=== PATIENT | female | born 2000 | race Caucasian/White ===

== ENCOUNTER 2020-07-17 12:48 | Emergency (ER) | payer OTHER, SELFPAY ==
[2020-07-17 13:02] VITALS: BP 143/82; PULSE 99; RESP 18; TEMP 37.1; O2SAT 100
--- NOTE | 2020-07-17 13:06 | ED.URI ---
HPI - URI/Sore Throat General Chief Complaint: Upper Respiratory Infection Stated Complaint: Ear Pain,sore throat Time Seen by Provider: 07/17/20 13:06 Source: patient Mode of arrival: ambulatory Limitations: no limitations History of Present Illness HPI Narrative: Carol Melgoza is a 20 yo female with no PMH who comes to express care with complaints of sore throat and bilateral ear pain that started on Saturday. She states she had bronchitis back in October and it feels similar to that although she is not coughing. She sounds mildly congested has difficulty swallowing, states throat hurts the most when she tries to swallow liquids Related Data Allergies Allergy/AdvReac Type Severity Reaction Status Date / Time No Known Allergies Allergy Mild Verified 07/17/20 12:52 Review of Systems Review of Systems: Narrative: CONSTITUTIONAL: Denies fever, chills, sweats. EYES: Denies visual changes, redness, discharge. ENT: Denies rhinorrhea, congestion, has sore throat, has bilateral otalgia. CARDIOVASCULAR: Denies chest pain, palpitations, edema. RESPIRATORY: Denies dyspnea, wheezing, cough GASTROINTESTINAL: Denies abdominal pain, nausea, vomiting, diarrhea. GENITOURINARY: Denies dysuria, hematuria, abnormal discharge SKIN: Denies rash or itching. NEUROLOGIC: Denies numbness, or focal weakness. PSYCHIATRIC: Denies anxiety or depression. PMFSH Past Medical History Medical History No active medical problems Family History Family History Other No acute medical problems Social History Social History Smoking status: Never smoker Alcohol intake: never Gender identity (if verbalized by the patient): Female Comments At time of signature, I agree with nursing past medical, surgical, social and family history. There is no relevant family history pertinent to the presenting complaint. Exam Narrative: Exam Narrative: GENERAL: This is a well-nourished, well-developed patient, in mild distress. HEAD: normocephalic, atraumatic. EYES: Sclera clear/white. Vision is grossly intact. EARS: External ears normal. Hearing grossly intact. Bilateral ear canals clear no erythema, TMs intact NOSE: External nose normal without nasal discharge, nares without redness, no rhinorrhea. THROAT: Mucous membranes moist, posterior pharynx mild erythema -difficulty swallowing on exam NECK: Neck supple, non-tender CARDIOVASCULAR: Regular rate and rhythm without murmurs, gallops, or rubs. RESPIRATORY: Clear to auscultation. Breath sounds equal bilaterally. No wheezes, rales, or rhonchi. GASTROINTESTINAL: Abdomen soft, non-tender, SKIN: warm, intact with no suspicious lesions or rash, good texture and turgor. NEURO: awake, alert, and oriented to person, place and time. There were no obvious focal neurologic abnormalities. Steady gait EXTREMITIES: Normal range of motion. BACK: Nontender without deformity Course Course Emergency Course: Patient came to express care with congestion and sore throat with fatigue flu and strep test done which were negative COVID ordered Started on prednisone albuterol inhaler, cepacol Follow-up with primary care Vital Signs Vital signs: Vital Signs Temperature 98.7 F 07/17/20 13:02 Pulse Rate 99 07/17/20 13:02 Respiratory Rate 18 07/17/20 13:02 Blood Pressure 143/82 H 07/17/20 13:02 Pulse Oximetry 100 07/17/20 13:02 Temperature 98.7 F 07/17/20 13:02 Pulse Rate 99 07/17/20 13:02 Respiratory Rate 18 07/17/20 13:02 Blood Pressure 143/82 H 07/17/20 13:02 Pulse Oximetry 100 07/17/20 13:02 MDM - URI/Sore Throat Differential Diagnosis Differential diagnosis: Likely upper respiratory infection, otitis media, bronchitis, pharyngitis and other Lab Data Labs: Influenza A Screen Negative Ref
== END 2020-07-17 13:40 | disposition home or self-care (01) ==
PROVIDERS: Emergency Provider Nurse Practitioner; PCP Family Medicine
DX: J02.8 Acute pharyngitis due to other specified organisms (principal); H92.03 Otalgia, bilateral; Z20.828 Contact with and (suspected) exposure to other viral communicable diseases
CPT/HCPCS: 87081; 87804; 87880; 99213; G0463

== ENCOUNTER 2021-08-22 13:42 | Emergency (ER) | payer OTHER, SELFPAY ==
[2021-08-22 13:56] VITALS: BP 124/70; PULSE 79; RESP 16; TEMP 36.7; O2SAT 100
--- NOTE | 2021-08-22 14:35 | ED.SKABFB ---
HPI - Skin/Abscess/Foreign Bdy General Chief complaint: Skin/Abscess/Foreign Body Stated complaint: Rash History of Present Illness HPI narrative: This is a 21-year-old female presents to the urgent care complains of having a rash for the past week started on her inner thighs. Patient states has been taking some Benadryl has continued to progress is on her bilateral arms on her buttocks this is on her stomach currently on her chest wall. Related Data Allergies Allergy/AdvReac Type Severity Reaction Status Date / Time No Known Allergies Allergy Mild Verified 08/22/21 14:01 Review of Systems Review of Systems: Rash arms buttocks, legs, All systems reviewed & are unremarkable except as noted in HPI and below PMFSH Past Medical History Medical History (Updated 08/23/21 @ 17:28 by Diana Rivero NP) No active medical problems Family History Family History Other No acute medical problems Social History Social History Smoking status: Never smoker Alcohol intake: never Gender identity (if verbalized by the patient): Female Comments At time as signature, I have reviewed and agree with nursing past medical, social, surgical and family history. Please see nursing chart for further information. There is no relevant family history pertinent to the presenting complaint. Exam Narrative: GENERAL:Well-appearing, well-nourished, and in no acute distress. HEAD:Normocephalic, atraumatic. EYES: PERRLA and EOMI. ENT: Nares clear, no rhinorrhea or epistaxis. Mucous membranes moist. HEART: Regular rate and rhythm. ABDOMEN: Soft, nontender, nondistended, normal active bowel sounds. EXTREMITIES: Normal range of motion. No edema. SKIN: Warm, dry, n fine erythema urticaria rash abdomen, inner thighs, legs, chest wall. NEURO: No focal deficits. Alert and oriented x3. Course Vital Signs Vital signs: Vital Signs Temperature 98.1 F 08/22/21 13:56 Pulse Rate 79 08/22/21 13:56 Respiratory Rate 16 08/22/21 13:56 Blood Pressure 124/70 08/22/21 13:56 Pulse Oximetry 100 08/22/21 13:56 Temperature 98.1 F 08/22/21 13:56 Pulse Rate 79 08/22/21 13:56 Respiratory Rate 16 08/22/21 13:56 Blood Pressure 124/70 08/22/21 13:56 Pulse Oximetry 100 08/22/21 13:56 MDM - Skin/Abscess/Foreign Bdy Differential Diagnosis Differential diagnosis: Likely abscess of skin or subcutaneous tissue, urticaria, allergic reaction to drug, eczema, impetigo and contact dermatitis Discharge Plan Discharge Clinical Impression: Urticaria, Contact dermatitis Patient Disposition: Home, Self-Care Condition: Stable Instructions: Antibiotic Form, Contact Dermatitis (ED), Acute Rash (ED) Additional Instructions: Use skin creams/lotion, such as those containing calamine or pramoxine to reduce itchiness Avoid scratching when possible to prevent worsening of the condition and disruption of the skin that could lead to bacterial infection To relieve itching, place a cool washcloth or some ice over the area that itches, rather than scratching Return to the office or seek ER visit if condition is not improving or worsens with fever, swelling, difficulty breathing or swallowing. Prescriptions: New methylprednisolone [Medrol (Pierce)] 4 mg tablets,dose pack See Rx Instructions .ROUTE .COMPLEX Qty: 21 RF: 0 hydrocortisone [Cortisone (hydrocortisone)] 1 % cream 1 applic topical TID PRN (Reason: allergic reaction) Qty: 28.4 RF: 0 cetirizine [Zyrtec] 10 mg tablet 10 mg PO DAILY PRN (Reason: allergy symptoms) Qty: 30 RF: 0 Follow-up/Referrals: Aguilar,Amy Rothman MD [Primary Care Provider] - Stand Alone Forms: Work/School Release IP Time of Disposition: 14:41
== END 2021-08-22 14:50 | disposition home or self-care (01) ==
PROVIDERS: Emergency Provider Nurse Practitioner Family; PCP Family Medicine
DX: L50.9 Urticaria, unspecified (principal); L25.9 Unspecified contact dermatitis, unspecified cause
CPT/HCPCS: 99213; G0463

== ENCOUNTER 2022-03-14 17:28 | Outpatient (CLI) | payer OTHER, SELFPAY ==
[2022-03-14 17:57] LABS: Hematocrit 22.4 % (37.0-47.0); Mean Corpuscular HGB Conc 26.8 g/dl (32-36); Mean Corpuscular Hemoglobin 15.6 pg (26-34); Mean Corpuscular Volume 58.3 fl (80-100); Mean Platelet Volume 9.8 fl (7.4-10.4); Platelet Count Result 293 k/mm3 (150-375); Red Blood Count 3.84 M/mm3 (4.2-5.4); Red Cell Distribution Width 19.9 % (11.5-14.5); White Blood Count 8.8 K/mm3 (4.5-10.0)
[2022-03-14 18:12] LABS: Alanine Aminotransferase 12 U/L (6-35); Albumin Level 4.3 g/dL (3.5-5.1); Alkaline Phosphatase 54 U/L (38-126); Anion Gap 8 mmol/L (8-16); Aspartate Amino Transferase 23 U/L (14-36); Blood Urea Nitrogen 13 mg/dL (7-17); Calcium 8.3 mg/dL (8.4-10.2); Carbon Dioxide 23 mmol/L (22-30); Chloride 106 mmol/L (98-107); Cholesterol 86 mg/dL (0-200); Estimated Glomerular Filt Rate > 60; Glucose 93 mg/dL (65-110); HDL Direct 20 mg/dL; Potassium 3.9 mmol/L (3.4-5.0); Sodium 137 mmol/L (137-145); Triglycerides 290 mg/dL (<150)
[2022-03-14 18:46] LABS: Appearance Urine Clear (Clear); Bilirubin Urine Negative (Negative); Blood Urine Negative (Negative); Color Urine Yellow (Yellow); Glucose Urine UA Negative (Negative); Ketones Urine Negative (Negative); Leukocyte Esterase Ur Negative LEU/UL (NEGATIVE); Nitrate Urine Negative (Negative); Protein Urine Trace mg/dL (Negative); Specific Grav Ur >= 1.030 (1.001-1.035); Urobilinogen Urine 0.2 mg/dL (<2.0); pH Urine 5.5 (5.0-9.0)
[2022-03-14 19:16] LABS: Bacteria Urine Trace /hpf; Mucus Urine Rare /lpf; RBC Urine 0-2 /hpf (0-2); Squamous Epithelial Cell Urine Few /hpf (Few); WBC Urine 0-3 /hpf (0-3)
[2022-03-14 19:24] LABS: Add Urine Microscopic? YES
[2022-03-14 19:29] LABS: LDL Cholesterol Direct < 30 mg/dL
== END 2022-03-14 17:29 | disposition home or self-care (01) ==
LOC: ANHLAB 17:31
PROVIDERS: PCP Family Medicine; Visit Provider Nurse Practitioner Family
DX: Z13.29 Encounter for screening for other suspected endocrine disorder (principal); Z13.89 Encounter for screening for other disorder; E28.2 Polycystic ovarian syndrome; E66.9 Obesity, unspecified
CPT/HCPCS: 36415; 80053; 80061; 81001; 83036; 84443; 85027; 85055

== ENCOUNTER 2022-03-23 11:49 | Outpatient (CLI) | payer OTHER, SELFPAY ==
[2022-03-23 12:22] LABS: INR 1.2; Prothrombin Time 14.4 Seconds (11.1-14.7)
== END 2022-03-23 11:50 | disposition home or self-care (01) ==
LOC: ANHLAB 11:53
PROVIDERS: PCP Family Medicine; Visit Provider Nurse Practitioner Family
DX: R53.83 Other fatigue (principal); D50.9 Iron deficiency anemia, unspecified
CPT/HCPCS: 36415; 85610

== ENCOUNTER 2022-03-30 17:01 | Outpatient (CLI) | payer OTHER, SELFPAY ==
[2022-03-30 17:57] LABS: Hematocrit 26.6 % (37.0-47.0); Immature Platelet Fraction Pct 4.7 % (0.9-11.2); Mean Corpuscular HGB Conc 25.9 g/dl (32-36); Mean Corpuscular Hemoglobin 16.3 pg (26-34); Mean Corpuscular Volume 62.9 fl (80-100); Mean Platelet Volume 9.8 fl (7.4-10.4); Platelet Count Result 386 k/mm3 (150-375); Red Blood Count 4.23 M/mm3 (4.2-5.4); Red Cell Distribution Width 24.2 % (11.5-14.5); White Blood Count 6.8 K/mm3 (4.5-10.0)
[2022-03-30 17:58] LABS: Add Urine Microscopic? YES; Appearance Urine Slightly Cloudy (Clear); Bilirubin Urine 1+ (Negative); Blood Urine 3+ (Negative); Color Urine Yellow (Yellow); Glucose Urine UA Negative (Negative); Ketones Urine Negative (Negative); Leukocyte Esterase Ur Negative LEU/UL (NEGATIVE); Nitrate Urine Negative (Negative); Protein Urine 1+ mg/dL (Negative); Specific Grav Ur >= 1.030 (1.001-1.035); Urobilinogen Urine 0.2 mg/dL (<2.0); pH Urine 5.5 (5.0-9.0)
[2022-03-30 18:10] LABS: Alanine Aminotransferase 9 U/L (6-35); Albumin Level 4.2 g/dL (3.5-5.1); Alkaline Phosphatase 52 U/L (38-126); Anion Gap 9 mmol/L (8-16); Aspartate Amino Transferase 18 U/L (14-36); Bilirubin,Total 0.9 mg/dL (0.2-1.3); Blood Urea Nitrogen 14 mg/dL (7-17); Calcium 8.4 mg/dL (8.4-10.2); Carbon Dioxide 23 mmol/L (22-30); Chloride 107 mmol/L (98-107); Cholesterol 94 mg/dL (0-200); Estimated Glomerular Filt Rate > 60; Glucose 89 mg/dL (65-110); HDL Direct 18 mg/dL; Potassium 4.1 mmol/L (3.4-5.0); Sodium 139 mmol/L (137-145); Triglycerides 284 mg/dL (<150)
[2022-03-30 18:11] LABS: Hemoglobin A1C 4.9 % (<5.7)
[2022-03-30 18:19] LABS: Mucus Urine Moderate /lpf; RBC Urine >75 /hpf (0-2); Squamous Epithelial Cell Urine Few /hpf (Few)
[2022-03-30 18:22] LABS: Hemoglobin 6.9 g/dL (12.0-15.0); LDL Cholesterol Direct 35 mg/dL
[2022-03-30 18:36] LABS: Free T4 Free Thyroxine 1.23 ng/mL (0.78-2.19); Vitamin D 25 Hydroxy 45.2 ng/mL
[2022-03-30 18:37] LABS: Total Triiodothyronine (T3) 1.58 NG/ML (0.97-1.69)
== END 2022-03-30 17:02 | disposition home or self-care (01) ==
LOC: ANHLAB 17:04
PROVIDERS: PCP Family Medicine; Visit Provider Nurse Practitioner Family
DX: Z13.29 Encounter for screening for other suspected endocrine disorder (principal); Z13.89 Encounter for screening for other disorder; Z13.220 Encounter for screening for lipoid disorders; Z13.1 Encounter for screening for diabetes mellitus; E28.2 Polycystic ovarian syndrome; E66.9 Obesity, unspecified
CPT/HCPCS: 36415; 80053; 80061; 81001; 82306; 82607; 83036; 84439; 84443; 84480; 85027; 85055

== ENCOUNTER 2023-01-31 15:17 | Emergency (ER) | payer OTHER, SELFPAY ==
--- NOTE | ~2023-01-31 | XR_ITS ---
XR chest 2V DATE: 01/31/2023 15:45 INDICATION: Chest pain starting today TECHNIQUE: PA and lateral views COMPARISON: None FINDINGS: Normal heart size. No hilar or mediastinal enlargement. No pulmonary infiltrate or consolid ation, pleural effusion or pulmonary vascular congestion or pneumothorax. Included skeletal structure s are unremarkable other than mild thoracolumbar dextroscoliosis. IMPRESSION: No active cardiopulmonary disease Reviewed, dictated and finalized at location L.
--- NOTE | 2023-01-31 15:18 | ECG_ITS ---
Measurements Intervals [place] Rate: 98 P: 9 OH: 104 QRS: -18 QRSD: 89 T: -1 QT: 345 QTc: 442 Interpretive Statements SINUS RHYTHM WITH SHORT OH INTERVAL POSSIBLE LEFT ATRIAL ENLARGEMENT [-0.1mV P WAVE IN V1/V2] POSSIBLE LEFT VENTRICULAR HYPERTROPHY [VOLTAGE CRITERIA PLUS LAE OR QRS WIDENING] NO PREVIOUS ECG AVAILABLE FOR COMPARISON Electronically Signed On 01-31-2023 18:37:34 CDT by Anu Garay M.D.
[2023-01-31 15:22] VITALS: BP 142/87; PULSE 98; RESP 16; O2SAT 100
[2023-01-31 15:45] LABS: Basophils Percent Auto 0.6 % (0.2-1.2); Eosinophils Absolute Auto 0.1 K/mm3 (0-0.3); Eosinophils Percent Auto 1.9 % (0-4.4); Hematocrit 30.5 % (37.0-47.0); Hemoglobin 8.9 g/dL (12.0-15.0); Immature Granulocyte Absolute 0.02 K/mm3 (0.00-0.031); Immature Granulocyte Percent A 0.3 % (0-0.5); Lymphocytes Absolute Auto 1.45 K/mm3 (0.9-3.2); Lymphocytes Percent Auto 23.1 % (18.3-44.2); Mean Corpuscular HGB Conc 29.2 g/dl (32-36); Mean Corpuscular Hemoglobin 18.1 pg (26-34); Mean Platelet Volume 9.7 fl (7.4-10.4); Monocytes Absolute Auto 0.7 K/mm3 (0.1-0.6); Monocytes Percent Auto 11.6 % (2.6-8.5); Neutrophils Absolute Auto 3.9 K/mm3 (1.3-6.7); Neutrophils Percent Auto 62.5 % (45.5-73.1); Platelet Count Result 422 k/mm3 (150-375); Red Blood Count 4.92 M/mm3 (4.2-5.4); Red Cell Distribution Width 17.1 % (11.5-14.5); White Blood Count 6.3 K/mm3 (4.5-10.0)
[2023-01-31 15:54] LABS: Alanine Aminotransferase 37 U/L (6-35); Albumin Level 4.5 g/dL (3.5-5.1); Alkaline Phosphatase 58 U/L (38-126); Anion Gap 7 mmol/L (8-16); Aspartate Amino Transferase 40 U/L (14-36); Bilirubin,Total 1.2 mg/dL (0.2-1.3); Blood Urea Nitrogen 10 mg/dL (7-17); Calcium 8.9 mg/dL (8.4-10.2); Carbon Dioxide 29 mmol/L (22-30); Chloride 103 mmol/L (98-107); Estimated CRCL calculation 108 ml/min; Estimated Glomerular Filt Rate > 60; Glucose 109 mg/dL (65-110); Lipase 68 U/L (23-300); Potassium 3.9 mmol/L (3.4-5.0); Sodium 139 mmol/L (137-145)
[2023-01-31 15:58] LABS: INR 1.1; Prothrombin Time 14.2 Seconds (11.1-14.7)
[2023-01-31 15:59] LABS: Partial Thromboplastin Time 28.5 SECONDS (22.3-36.8)
[2023-01-31 16:06] LABS: Troponin I < 0.012 ng/mL (0.000-0.034)
[2023-01-31 16:11] LABS: Anisocytosis 1+ (NORMAL); Hypochromasia 2+ (NORMAL); Ovalocytes 1+ (NORMAL); Platelet Estimate Adequate (Adequate); Schistocytes None Seen (NORMAL)
[2023-01-31 17:50] VITALS: BP 118/65; PULSE 81; RESP 18; TEMP 36.2; O2SAT 100
--- NOTE | 2023-01-31 19:19 | PC.NURSE ---
Three hour troponin drawn and sent. Pt updated on testing completed at this time. Bedside negative. Awaiting bed availability at this time.
[2023-01-31 19:51] LABS: Troponin I < 0.012 ng/mL (0.000-0.034)
--- NOTE | 2023-01-31 21:52 | ED.CHESTPAIN ---
HPI - Chest Pain General Chief Complaint: Chest Pain Stated Complaint: chest pains x1 hour/intermittent CP x3 months Time Seen by Provider: 01/31/23 21:51 History of Present Illness HPI narrative: Patient is a 23-year-old female here for evaluation of chest pain over the past 3 months. Patient states the pain is described as a squeezing sensation in the left side of her chest, coming at random, lasting seconds at a time before resolving without intervention. Patient states that today her pain was more severe than usual which prompted her ED evaluation. Not currently having any pain. States that she had an upper respiratory infection last week that has since resolved. Has had no fevers, chills, nausea, vomiting, shortness of breath, leg swelling. She does not take oral contraceptives, has not had any recent trips or travel or surgery. She took ibuprofen at home without relief of her symptoms. Related Data Allergies Allergy/AdvReac Type Severity Reaction Status Date / Time No Known Allergies Allergy Mild Verified 08/22/21 14:01 Review of Systems Review of Systems: Gen.: Denies fevers or chills Eyes: Denies eye pain or visual change ENT: Denies congestion Respiratory: Denies shortness of breath or cough CV: Reports chest pain GI: Denies abdominal pain nausea, emesis or diarrhea denies burning, urgency, frequency or hematuria Musculoskeletal: Denies back pain or muscle pain Neuro: Denies numbness, tingling, weakness or focal weakness Skin: Denies rash Except as documented, all other systems reviewed and negative PMFSH Past Medical History Medical History (Updated 02/01/23 @ 00:00 by [facility] Daemiliano) No active medical problems Family History Family History Other No acute medical problems Social History Social History Smoking status: Never smoker Alcohol intake: never Gender identity (if verbalized by the patient): Female Exam Narrative: APPEARANCE: Well appearing, no pain in distress, well-nourished. Head: Normocephalic and atraumatic. EYES: PERRLA/EOMI, conjunctivae clear NOSE: No nasal drainage EARS: External ear normal in appearance THROAT: Oropharynx is clear. Mucous membranes are moist. NECK: Supple. No adenopathy, no masses. RESPIRATORY: Airway patent, respirations nonlabored. Clear to auscultation bilaterally, no rales, rhonchi, wheezing. CARDIOVASCULAR: Regular rate and rhythm without murmurs, rubs, or gallops. ABDOMINAL: Normoactive bowel sounds. Soft, nontender, nondistended. No rebound tenderness or guarding. MUSCULOSKELETAL: Extremities are warm and well-perfused. Moves all extremities well. No edema. NEURO: Normal speech. No focal neurologic deficits. SKIN: Skin is warm and dry. No rashes. PSYCHIATRIC: Normal affect/mood.. Course Vital Signs Vital signs: Vital Signs Pulse Rate 98 01/31/23 15:22 Respiratory Rate 16 01/31/23 15:22 Blood Pressure 142/87 H 01/31/23 15:22 Pulse Oximetry 100 01/31/23 15:22 Oxygen Delivery Room Air 01/31/23 15:22 Temperature 97.2 F L 01/31/23 17:50 Pulse Rate 81 01/31/23 17:50 Respiratory Rate 18 01/31/23 17:50 Blood Pressure 118/65 01/31/23 17:50 Pulse Oximetry 100 01/31/23 17:50 Oxygen Delivery Room Air 01/31/23 15:22 MDM - Chest Pain MDM Narrative Medical decision making narrative: 23-year-old female here for evaluation of chest pain over the past several months, worsened today. Patient is nontoxic in appearance and has normal vital signs. Her heart and lungs are clear to auscultation. EKG has some nonspecific T wave abnormalities but her troponin x2 are undetectable. History not consistent with ACS. Low risk by the heart score. She is PERC negative, thus D-dimer was not obtained, PE thought unlikely given chronicity of symptoms. Considered pericarditis but she has no characteristic EKG
== END 2023-01-31 22:16 | disposition home or self-care (01) ==
LOC: ANHED 22:03
PROVIDERS: Emergency Medicine; Emergency Provider Physician Assistant; PCP Family Medicine
DX: R07.89 Other chest pain (principal); R94.31 Abnormal electrocardiogram [ECG] [EKG]
CPT/HCPCS: 36415; 71046; 80053; 81025; 83690; 84484; 85025; 85610; 85730; 93005; 99284

== ENCOUNTER 2023-02-09 12:43 | Emergency (ER) | payer OTHER, SELFPAY ==
[2023-02-09 12:51] VITALS: BP 138/87; PULSE 118; RESP 16; TEMP 37.4; O2SAT 100
--- NOTE | 2023-02-09 13:12 | ED.URI ---
HPI - URI/Sore Throat General Chief Complaint: Upper Respiratory Infection Stated Complaint: Sore Throat Time Seen by Provider: 02/09/23 13:12 Source: patient, RN notes reviewed and old records reviewed Mode of arrival: ambulatory Limitations: no limitations History of Present Illness HPI Narrative: 23-year-old female presents to the [facility] with complaints of a sore throat. Patient states that she the sore throat for a month. Swelling started a couple of weeks ago. States that she was diagnosed with strep about 3 months ago and did finish her antibiotics. Denies any fevers. MD elicited complaint: sore throat Related Data Home Medications Medication Instructions Recorded Confirmed ferrous sulfate 325 mg (65 mg mg 02/09/23 iron) tablet (FeroSul) metformin 500 mg tablet,extended mg PO 02/09/23 release 24 hr Allergies Allergy/AdvReac Type Severity Reaction Status Date / Time No Known Allergies Allergy Mild Verified 02/09/23 12:51 Review of Systems Review of Systems: All systems reviewed & are unremarkable except as noted in HPI and below Constitutional: Constitutional: Reports no additional constitutional complaints Eyes: Eyes: Reports no additional eye complaints ENT: Reports as per HPI and Reports sore throat Cardiovascular: Cardiovascular: Reports no additional cardiovascular complaints, Denies chest pain and Denies dyspnea Respiratory: Respiratory: Reports no additional respiratory complaints, Denies chest congestion, Denies cough and Denies dyspnea Gastrointestinal: Gastrointestinal: Reports no additional gastrointestinal complaints, Denies abdominal pain, Denies nausea and Denies vomiting Musculoskeletal: Musculoskeletal: Reports no additional musculoskeletal complaints Integumentary/Breasts: Skin/Breast: Reports system reviewed and no additional complaints, except as docu Neurologic: Reports system reviewed and no additional complaints, except as documented Psychiatric: Psychiatric: Reports no additional psychiatric complaints Allergic/Immunologic: Allergic/Immunologic: Reports no additional allergic/immunologic complaints [facility] Past Medical History Medical History (Updated 02/10/23 @ 00:00 by [facility] Daemiliano) No active medical problems Family History Family History Other No acute medical problems Social History Social History Smoking status: Never smoker Alcohol intake: never Gender identity (if verbalized by the patient): Female Comments At the time of my signature, I reviewed and agree with the nursing past medical, surgical, social, and family history. There is no relevant family history pertinent to the patient complaint. Exam Const: General: cooperative, healthy appearing, comfortable, no acute distress, well developed, alert and well nourished Nutritional Appearance: well nourished Orientation/consciousness: patient oriented x3 Limitations: no limitations HENMT: Head: normal to inspection Ears: hearing grossly normal bilaterally and external ears normal Face/Nose/Sinus: Normal external nose present, Normal nares present, Normal nasal mucous membranes and turbinates present and normal facial exam Face and sinus: normal facial exam Mouth: Yes Normal oral and palatal mucosa present, Yes lip normal and Yes moist mucous membranes Teeth and gingiva: poor dentition Throat: uvula midline, abnormal tonsil bilateral erythema, exudates and hypertrophy 3+ and posterior oropharynx abnormal erythema; no edema Eyes: General: appearance normal, both eyes and all related structures Alignment and Position: alignment normal Periorbital: periorbital findings normal Conjunctivae: conjunctivae normal Pupils: Equal, round and reactive pupils present EOM: EOMs intact bilaterally Neck: Neck: normal visual inspection, full ROM, no meningeal signs and lymphadenopathy (B
== END 2023-02-09 13:22 | disposition home or self-care (01) ==
PROVIDERS: Emergency Provider Nurse Practitioner; PCP Family Medicine
DX: J02.0 Streptococcal pharyngitis (principal)
CPT/HCPCS: 87880; 99213; G0463

== ENCOUNTER 2023-06-20 11:14 | Emergency (ER) | payer OTHER, SELFPAY ==
[2023-06-20 11:39] VITALS: BP 134/79; PULSE 81; RESP 16; TEMP 36.3; O2SAT 100
--- NOTE | 2023-06-20 12:37 | ED.URI ---
HPI - URI/Sore Throat General Chief Complaint: Upper Respiratory Infection Stated Complaint: Sore Throat Time Seen by Provider: 06/20/23 12:32 Source: patient and RN notes reviewed Mode of arrival: ambulatory Limitations: no limitations History of Present Illness HPI Narrative: Patient presents today complaining of one-week history of sore throat, headache, dizziness, right ear pain that have been worsening since onset. Currently rates her pain 4/10 and has been taking Tylenol and ibuprofen with some relief. Denies sick contacts. Related Data Allergies Allergy/AdvReac Type Severity Reaction Status Date / Time No Known Allergies Allergy Mild Verified 06/20/23 12:35 Review of Systems Review of Systems: CONSTITUTIONAL: Denies body aches, fever, chills, or sweats. EYES: Denies visual changes, redness, or discharge. ENT: Denies rhinorrhea, congestion. + sore throat, right ear pain CARDIOVASCULAR: Denies chest pain, palpitations, or edema. RESPIRATORY: Denies cough or dyspnea. GASTROINTESTINAL: Denies abdominal pain, nausea, vomiting, or diarrhea. GENITOURINARY: Denies dysuria or hematuria. SKIN: Denies rash, itching, or wounds. MUSCULOSKELETAL: Denies back pain, joint pain, or myalgia. NEUROLOGIC: Denies numbness, tingling, or weakness.+ headache, dizziness PSYCH: Denies depression or anxiety. [facility] Past Medical History Medical History (Updated 06/20/23 @ 12:39 by Francisca Cintron, [facility], ) No active medical problems Family History Family History Other No acute medical problems Social History Social History Smoking status: Never smoker Alcohol intake: never Gender identity (if verbalized by the patient): Female Comments At time of signature, I have reviewed and agree with nursing past medical, surgical, social and family history unless otherwise noted. Please see nursing chart for further information. There is no relevant family history pertinent to the presenting complaint Exam Narrative: GENERAL: Well-appearing, well-nourished, and in no acute distress. HEAD: Normocephalic, atraumatic. EYES: EOMI. No redness or drainage. Conjunctivae normal. ENT: Mucous membranes pink and moist. Nares clear. No rhinorrhea. TMs normal bilaterally. Throat erythematous and mildly edematous without exudate. Uvula midline. NECK: Normal AROM. Supple. No lymphadenopathy. CHEST: No respiratory distress. Clear to auscultation. HEART: Regular rate and rhythm. No murmur appreciated. Normal peripheral pulses. EXTREMITIES: Normal range of motion. No edema. SKIN: Warm, dry, no rash. Capillary refill normal. Normal skin turgor. NEURO: No focal deficits. Alert and oriented x3. Gait steady. PSYCH: Normal affect. No signs of depression or anxiety. Course Course Level of Care: Express Care Visit Vital Signs Vital signs: Vital Signs Temperature 97.4 F L 06/20/23 11:39 Pulse Rate 81 06/20/23 11:39 Respiratory Rate 16 06/20/23 11:39 Blood Pressure 134/79 06/20/23 11:39 Pulse Oximetry 100 06/20/23 11:39 Oxygen Delivery Room Air 06/20/23 11:39 Temperature 97.4 F L 06/20/23 11:39 Pulse Rate 81 06/20/23 11:39 Respiratory Rate 16 06/20/23 11:39 Blood Pressure 134/79 06/20/23 11:39 Pulse Oximetry 100 06/20/23 11:39 Oxygen Delivery Room Air 06/20/23 11:39 Reviewed. Pt has been instructed to follow up with her PCP regarding her elevated blood pressure today. MDM - URI/Sore Throat MDM Narrative Medical decision making narrative: Rapid strep positive. Prescription for amoxicillin sent to pharmacy. Anticipatory guidance given. Differential Diagnosis Differential diagnosis: Likely upper respiratory infection, otitis media, viral infection, pharyngitis and other (Strep throat) Lab Data Attestation: I reviewed the patient's lab results. Labs: St
== END 2023-06-20 13:09 | disposition home or self-care (01) ==
PROVIDERS: Emergency Provider Nurse Practitioner; PCP Family Medicine
DX: J02.0 Streptococcal pharyngitis (principal)
CPT/HCPCS: 87880; 99213; G0463